=== PATIENT | female | born 1985 | race African-American/Black ===

== ENCOUNTER → 2018-02-26 | Outpatient (CLI) | payer OTHER ==
[~2018-02-26] MED LIST: GASTROGRAFIN SOLUTION 30ML (Q9963) As Ordered; ISOVUE-370 76% 100ML VIAL (Q9967) As Ordered
== END ==
LOC: M RAD 13:40
DX: R10.9 Unspecified abdominal pain (principal)
CPT/HCPCS: Q9963

== ENCOUNTER 2019-01-28 10:27 | Day surgery (SDC) | payer OTHER ==
[~2019-01-28] VITALS: Ht 162.6 cm; Wt 96.4 kg
[2019-01-28] MEDS ORDERED: PREN29TA4 PO (10:41)
[2019-01-28] MEDS ORDERED: LEVO25TA5 PO (10:41)
[2019-01-28] MEDS ORDERED: OMEP-218 PO (10:41)
[2019-01-28 11:35] LABS: HEMATOCRIT 36.5 % (36.0-47.0); HEMOGLOBIN 11.7 g/dl (12.0-15.5); MEAN CORPUSCULAR HEMOGLOBIN 27.7 pg (27.0-33.0); MEAN CORPUSCULAR HGB CONC 32.1 g/dl (32.0-36.5); MEAN CORPUSCULAR VOLUME 86.5 fl (80.0-96.0); PLATELET COUNT, AUTOMATED 373 10^3/uL (150-450); RED BLOOD COUNT 4.22 10^6/uL (4.00-5.40); WHITE BLOOD COUNT 4.5 10^3/uL (4.0-10.0)
--- NOTE | 2019-01-28 13:08 | REP ---
First trimester obstetric sonography: History: Pelvic pain. Vaginal bleeding. No beta hCG level available. 5 weeks 6 days by LMP. Findings: Transabdominal and transvaginal scanning are performed. Uterine dimensions are normal at 7.0 x 4.0 x 4.3 cm. Endometrial echo is 1.0 cm thick and heterogeneous. The patient is actively bleeding. The uterus is retroverted. The right ovary is normal in size with dimensions of 2.3 x 1.2 x 2.6 cm. It contains a 1.4 cm hypoechoic follicle. The left ovary measures 2.6 x 1.6 x 2.2 cm. There is complex free fluid in the cul-de-sac, moderate in degree. There is a hyperechoic complex mass medial to the left ovary in the left adnexa measuring 2.8 x 1.9 x 1.9 cm. There is hyperemic flow associated with this. Findings are suspicious for left adnexal ectopic. Doppler flow was observed in both ovaries. Impression: Moderate amount of complex cul-de-sac fluid and a 2.8 cm complex mass medial to the left ovary raise suspicion of left adnexal ectopic gestation. There is no evidence of intrauterine gestation. Normal right ovary. Electronically Signed by Pilo Ta MD 01/28/2019 06:17 P
[2019-01-28 13:36] LABS: CHLAMYDIA DNA AMPLIFICATION NEGATIVE (NEGATIVE); GC DNA AMPLIFICATION NEGATIVE (NEGATIVE)
[2019-01-28] MEDS ORDERED: BUPIVACAINE HCL 0.25% 30 ML VIAL As Ordered ONE (14:58)
[2019-01-28] MEDS ORDERED: KETOROLAC 60 MG/2 ML VIAL (J1885) As Ordered ONE (18:12)
[2019-01-28] MEDS ORDERED: ACETAMINOPHEN 1000MG 100ML IV BTL (OFIRMEV) (J0131 PER 10MG) As Ordered ONE (18:13)
[2019-01-28] MEDS ORDERED: MIDAZOLAM INJ 2 MG/2 ML VIAL (J2250) As Ordered ONE (18:13)
[2019-01-28] MEDS ORDERED: fentaNYL 250 MCG/5 ML INJECTION (J3010) As Ordered ONE (18:13)
[2019-01-28] MEDS ORDERED: PROPOFOL 200 MG/20 ML VIAL As Ordered ONE (18:13)
[2019-01-28] MEDS ORDERED: ONDANSETRON 4MG/2ML VIAL (J2405) As Ordered ONE (18:13)
[2019-01-28] MEDS ORDERED: ROCURONIUM BROMIDE 50 MG/5 ML VIAL As Ordered ONE (18:13)
[2019-01-28] MEDS ORDERED: LIDOCAINE 2% INJ 100 MG/5 ML SDV (FOR ANES.) As Ordered ONE (18:13)
[2019-01-28] MEDS ORDERED: KETAMINE HCL 200 MG/20 ML VIAL As Ordered ONE (18:17)
[2019-01-28] MEDS ORDERED: SUGAMMADEX SODIUM 500 MG/5 ML VIAL (BRIDION) As Ordered ONE (18:22)
[2019-01-28] MEDS ORDERED: LR 1,000 ML IV SCH (19:15)
[2019-01-28] MEDS ORDERED: ONDANSETRON 4MG/2ML VIAL (J2405) IV PRN (19:15)
[2019-01-28] MEDS ORDERED: PERCOCET 5MG/325MG TAB PO PRN (19:15)
[2019-01-28] MEDS ORDERED: fentaNYL 100 MCG/2 ML INJECTION (J3010) IV PRN (19:15)
[2019-01-28] MEDS: PERCOCET 5MG/325MG TAB PO PRN ×2 (19:23→20:02)
[2019-01-28] MEDS ORDERED: METOCLOPRAMIDE INJ 10MG/2ML VIAL (J2765) As Ordered ONE (19:45)
[2019-01-28] MEDS ORDERED: METOCLOPRAMIDE INJ 10MG/2ML VIAL (J2765) IV PRN (20:00)
[2019-01-28 22:25] VITALS: BP 103/62
--- NOTE | 2019-01-29 08:30 | RO ---
DATE OF PROCEDURE: 01/28/2019 INDICATIONS FOR THE PROCEDURE: The patient presented as a 33-year-old 1, para 0 at approximately 5 plus 2 weeks gestation by last menstrual period (LMP) to the emergency room for left lower quadrant pain and vaginal bleeding. As part of her workup, she was found to be and she had a pelvic ultrasound performed. The pelvic ultrasound revealed complex free fluid in the pelvis and an approximately 3 cm left adnexal mass highly suspicious for an ectopic . The patient was stable but was recommended for diagnostic and possible operative laparoscopy for removal of the ectopic and possible salpingectomy. The patient elected to proceed. PREOPERATIVE DIAGNOSIS: Left adnexal ectopic . POSTOPERATIVE DIAGNOSIS: Left adnexal ectopic . PROCEDURE PERFORMED: Laparoscopic left salpingectomy. SURGEON: Zachary Anaya DO TOOL AND DIE MACHINIST: Nakul Foster MD ANESTHESIA: GETA IV FLUIDS: 1 liter Lactated Ringer's. URINE OUTPUT: 600 mL of urine via Penaloza catheter. ESTIMATED BLOOD LOSS: 3 mL. ANTIBIOTICS: None indicated. OPERATIVE FINDINGS: Normal uterus, normal right fallopian tube, normal right ovary, normal left ovary, left fallopian tube significantly swollen and dilated consistent with ectopic within. COMPLICATIONS: None. DETAILED PROCEDURE DESCRIPTION: The risks, benefits, indications and alternatives to the procedure were reviewed with the patient and informed consent was obtained. The patient was taken to the operating room where general anesthesia was obtained without difficulty. The patient was then placed in lithotomy position using gel padded Papito stirrups. The patient was then prepped and draped in the usual sterile fashion. A surgical time out was then performed and the patient's identity and planned procedure were verified with the operative team. A Penaloza catheter was then placed first to drain the bladder. A sterile speculum was then inserted into the vagina and the cervix was visualized. A Hulka uterine manipulator was then applied to the cervix for manipulation. The sterile speculum was then removed. Gloves were exchanged and attention was then turned to the patient's abdomen where a 5 mm skin incision was made in the inferior aspect of the umbilicus after injection of 0.25% Marcaine. A 5 mm trocar and sleeve were then carefully introduced into the peritoneal cavity under direct visualization at a 90 degree angle while tenting up the abdominal wall. Intraperitoneal placement was confirmed under direct visualization and entry pressure was noted to be less than 5 mmHg. A pneumoperitoneum was then obtained with several liters of CO2 gas. Upon entry into the peritoneal cavity, structures immediately below the incision were inspected and found to be free of injury. At this time, two additional trocars were then inserted into the abdomen to include a 5 mm one in the right lower quadrant and an 11 mm one in the left lower quadrant under direct visualization after skin incisions with a scalpel. A survey of the patient's abdomen and pelvis was notable for a large edematous dilated left fallopian tube consistent with an ectopic within. The fallopian tube had not yet ruptured, however it was bleeding from the distal portion. The left ovary was normal in appearance. The uterus was normal in appearance. The right fallopian tube was normal in appearance. The right ovary was normal in appearance. A survey of the remainder of the patient's abdomen including the liver appeared normal. There was a moderate amount of complex free fluid in the posterior cul-de-sac. Using the atraumatic grasper, the left fallopian tube was inspected and found to not to be salvageable as the ectopic was across the entire length and the tube was significantly swollen. The fallopian tube was then grasped and then in a stepwise fashion the left fallopian tube was transected off the mesosalpinx using the LigaSure electrocautery. Close attention was paid to the left infundibulopelvic ligament and the uterosacral ligament, and neither of these were affected. An Endo Catch bag was then introduced into the abdomen through the 11 mm port site. The left fallopian tube with ectopic within was then placed within the bag and the bag was removed from the abdomen without difficulty. The entire specimen, including the fallopian tube was sent to the pathology for review. Reexamination of the pelvis revealed excellent hemostasis of the operative sites. Suction irrigation was then performed of the pelvis to good effect. The pelvis was then irrigated to good effect. After irrigation and removal of complex free fluid and blood, the pelvis was then again inspected and found to be hemostatic. The operative sites along the left adnexa was noted to be hemostatic. The 11 mm port was then removed under direct visualization and the fascia was close with #0 Vicryl suture using a Nando-Elgin device. The gas was then turned off and all CO2 was removed from the patient's abdomen. All remaining ports were then removed under direct visualization and there was no bleeding seen from the trocar sites. Skin incisions were then reapproximated using #4-0 Monocryl suture in a subcuticular fashion and covered with DERMABOND. The uterine manipulator was then removed from below and the cervix was hemostatic. All instruments were then confirmed to have been removed from the patient's vagina. The patient's Penaloza catheter was then removed. A vaginal sweep was then performed and confirmed no retained foreign object remained. At the completion of the case, the sponge, instrument and needle counts were correct times two. The patient tolerated the procedure well and was taken to the postanesthesia care unit (PACU) in stable condition. KENDALL
== END 2019-01-28 22:34 | disposition home or self-care (01) ==
LOC: M ED 10:27 → M SDC 13:53
PROVIDERS: ATTEND Obstetrics & Gynecology
DX: O00.90 Unspecified ectopic pregnancy without intrauterine pregnancy (principal); E03.9 Hypothyroidism, unspecified; Z79.899 Other long term (current) drug therapy; Z98.84 Bariatric surgery status
CPT/HCPCS: 36415; 59151; 76801; 76817; 81001; 84702; 85027; 86850; 86900; 86901; 87210; 87491; 87591; 88305; 93976; 99284; J0131; J1885; J2250; J2405; J2765; J3010

== ENCOUNTER → 2019-04-27 | Outpatient (CLI) | payer OTHER ==
[~2019-04-27] MED LIST changes: -GASTROGRAFIN SOLUTION 30ML (Q9963) As Ordered; -ISOVUE-370 76% 100ML VIAL (Q9967) As Ordered; +LEVO25TA5 PO; +OMEP-218 PO; +PREN29TA4 PO
--- NOTE | 2019-04-27 14:47 | REP ---
FIRST TRIMESTER ULTRASOUND: Real-time sonographic evaluation of the gravid uterus performed utilizing transabdominal and endovaginal technique. The uterus measures 7.5 x 4.2 x 6.6 cm. The uterus is retroverted. There is an oval gestational sac in the endometrial canal with a mean sac diameter of 21 mm corresponding to an estimated gestational age of 7 weeks 1 day. A yolk sac is seen within the gestational sac. However, no friable pole is seen. Ill-defined echoes within the posterior aspect of the sac measure 1.3 x 0.3 x 1.3 cm. Left subchorionic hemorrhage measures 3.9 x 0.8 x 1.9 cm. Right ovary measures 3.9 x 1.8 x 3.0 cm. There is a complex cystic structure in the right ovary 2.4 x 1.3 x 1.6 cm. Left ovary measures 2.1 x 1.3 x 2.4 cm. There is no evidence of ovarian torsion, RI right ovary 0.71 and left ovary 0.76. IMPRESSION: Gestational sac in the endometrial canal contains a yolk sac and ill-defined echoes with no viable pole. Estimated gestational age based on the mean sac diameter 7 weeks 1 day. A viable pole should be seen with a gestational sac of this size. The findings, therefore, I suspect represent a blighted ovum. There appears to be a left-sided subchorionic hemorrhage 3.9 x 0.8 x 1.9 cm. Electronically Signed by Alex Zuleta MD 04/28/2019 01:56 P
== END ==
LOC: M RAD 08:39
PROVIDERS: ATTEND Obstetrics & Gynecology
DX: Z34.81 Encounter for supervision of other normal pregnancy, first trimester (principal)

== ENCOUNTER 2019-05-01 15:41 | Day surgery (SDC) | payer OTHER ==
[~2019-05-01] VITALS: Ht 162.6 cm; Wt 100.2 kg
[2019-05-01] MEDS ORDERED: ACETAMINOPHEN 650 MG SUPP PR ONE (16:00)
[2019-05-01] MEDS ORDERED: CLINDAMYCIN 900 MG in APPROPRIATE DILUENT 1 EA IV ONE (16:00)
[2019-05-01] MEDS ORDERED: SODIUM CHLORIDE 0.9% 1000ML IV ONE (16:00)
[2019-05-01 16:12] LABS: HEMATOCRIT 37.4 % (36.0-47.0); HEMOGLOBIN 12.2 g/dl (12.0-15.5); MEAN CORPUSCULAR HEMOGLOBIN 28.9 pg (27.0-33.0); MEAN CORPUSCULAR HGB CONC 32.6 g/dl (32.0-36.5); MEAN CORPUSCULAR VOLUME 88.6 fl (80.0-96.0); PLATELET COUNT, AUTOMATED 367 10^3/uL (150-450); RED BLOOD COUNT 4.22 10^6/uL (4.00-5.40); WHITE BLOOD COUNT 7.1 10^3/uL (4.0-10.0)
[2019-05-01] MEDS ORDERED: GENTAMICIN 80 MG in APPROPRIATE DILUENT 1 EA IV ONE (17:00)
[2019-05-01] MEDS ORDERED: NS 1,000 ML IV SCH (17:00)
[2019-05-01] MEDS ORDERED: LR 1,000 ML IV SCH ×2 (17:45→20:00)
[2019-05-01] MEDS ORDERED: LIDOCAINE 2% INJ 100 MG/5 ML SDV (FOR ANES.) As Ordered ONE (17:59)
[2019-05-01] MEDS ORDERED: MIDAZOLAM INJ 2 MG/2 ML VIAL (J2250) As Ordered ONE (17:59)
[2019-05-01] MEDS ORDERED: ONDANSETRON 4MG/2ML VIAL (J2405) As Ordered ONE ×2 (17:59→19:22)
[2019-05-01] MEDS ORDERED: dexameTHASONE 4 MG/ML 1ML VIAL (J1100) As Ordered ONE (17:59)
[2019-05-01] MEDS ORDERED: PROPOFOL 200 MG/20 ML VIAL As Ordered ONE (17:59)
[2019-05-01] MEDS ORDERED: fentaNYL 100 MCG/2 ML INJECTION (J3010) As Ordered ONE (18:01)
[2019-05-01] MEDS ORDERED: ACETAMINOPHEN 650 MG SUPP As Ordered ONE (19:02)
[2019-05-01] MEDS ORDERED: OXYTOCIN INJ 10 UNITS/ML VIAL (J2590) As Ordered ONE (19:10)
[2019-05-01] MEDS ORDERED: fentaNYL 100 MCG/2 ML INJECTION (J3010) IV PRN (20:00)
[2019-05-01] MEDS ORDERED: ONDANSETRON 4MG/2ML VIAL (J2405) IV PRN (20:00)
[2019-05-01] MEDS ORDERED: METOCLOPRAMIDE INJ 10MG/2ML VIAL (J2765) IV PRN (20:00)
[2019-05-01] MEDS ORDERED: PERCOCET 5MG/325MG TAB PO PRN (20:00)
[2019-05-01] MEDS ORDERED: KETOROLAC 30 MG/ML VIAL (J1885) IV PRN (20:00)
[2019-05-01 21:10] VITALS: BP 118/67
--- NOTE | 2019-05-04 21:44 | RO ---
DATE OF PROCEDURE: 05/01/2019 PREOPERATIVE DIAGNOSIS: Missed questionable sepsis. POSTOPERATIVE DIAGNOSIS: Missed questionable sepsis. OPERATION PROPOSED: Suction curettage. OPERATION PERFORMED: Suction curettage. ANESTHESIA: General ESTIMATED BLOOD LOSS: 20 mL SURGEON: Dr. Foster After adequate time-out appropriate antibiotic therapy, sequentials, acetaminophen suppository 1300 mg per rectum. Weighted speculum in vagina and single-tooth tenaculum on the anterior lip of cervix which has a large prominent anterior lip. Uterus sounded to 12 cm dilated to Maxine 10, curved suction curette applied. Curettage a cavity smooth. Uterus replaced in anatomical position well contracted under Pitocin. The patient is Rh positive does not require RhoGAM was sent to recovery in good condition.
== END 2019-05-01 21:35 | disposition home or self-care (01) ==
LOC: M SDC 15:41
PROVIDERS: ATTEND Obstetrics & Gynecology
DX: O02.1 Missed abortion (principal); D64.9 Anemia, unspecified; E03.9 Hypothyroidism, unspecified; Z98.84 Bariatric surgery status; K21.9 Gastro-esophageal reflux disease without esophagitis; Z79.899 Other long term (current) drug therapy
CPT/HCPCS: 36415; 59820; 76817; 84702; 85027; 86850; 86900; 86901; 88305; J1100; J1580; J2250; J2405; J2590; J3010

== ENCOUNTER → 2019-05-01 | Outpatient (CLI) | payer OTHER ==
--- NOTE | 2019-05-01 15:13 | REP ---
TRANSVAGINAL PELVIC ULTRASOUND: Real-time sonographic evaluation of the pelvis performed utilizing transvaginal probe. Comparison made with prior study of 04/27/2019. The uterus is retroverted. It measures 8. 2 x 4.4 x 6.0 cm. The endometrium is heterogenous and thickened, with a maximum AP diameter of 13 mm. There is blood flow in portions of the endometrium with Doppler evaluation. There is mild complex fluid in the endometrial canal. I cannot exclude mild retained products of conception. However, the previously noted gestational sac is no longer visualized in the endometrial canal. Right ovary measures 3.3 x 1.4 x 2.2 cm and left ovary 2.5 x 1.6 x 2.6 cm. There is no torsion bilaterally. Complex corpus luteum in the right ovary measures 2.2 x 1.8 x 1.4 cm. There is mild free fluid in the right adnexa. Electronically Signed by Alex Zuleta MD 05/01/2019 03:22 P
== END ==
LOC: M RAD 13:51
PROVIDERS: ATTEND Obstetrics & Gynecology
DX: O02.1 Missed abortion (principal); R50.9 Fever, unspecified; Z87.59 Personal history of other complications of pregnancy, childbirth and the puerperium; Z79.890 Hormone replacement therapy

== ENCOUNTER 2021-06-21 11:31 | Emergency (ER) | payer OTHER ==
[~2021-06-21] VITALS: Ht 162.6 cm; Wt 125.0 kg
--- OUTSIDE RECORDS SUMMARY | 2021-06-21 11:37 | CCD ---
Author Author [facility] Organization [facility] Address Unknown Phone Unavailable Support Name Relationship Address Phone CARMELLA MATSON Next Of Kin Unknown AAFES Next Of Kin [address] [place] [address] UE Next Of Kin Unknown Unavailable GAUDENCIO SCOTT Next Of Kin [address] [place], [place] [id number] Chente MATSON Next Of Kin [address] [place], [place] [id number] Re-disclosure Warning The records that you are about to access may contain information from federally-assisted alcohol or drug abuse programs. If such information is present, then the following federally mandated warning applies: This information has been disclosed to you from records protected by federal confidentiality rules (42 CFR part 2). The federal rules prohibit you from making any further disclosure of this information unless further disclosure is expressly permitted by the written consent of the person to whom it pertains or as otherwise permitted by 42 CFR part 2. A general authorization for the release of medical or other information is NOT sufficient for this purpose. The Federal rules restrict any use of the information to criminally investigate or prosecute any alcohol or drug abuse patient.The records that you are about to access may contain highly sensitive health information, the redisclosure of which is protected by Article 27-F of the [facility] Public Health law. If you continue you may have access to information: Regarding HIV / AIDS; Provided by facilities licensed or operated by the [facility] Office of Mental Health; or Provided by the [facility] Office for People With Developmental Disabilities. If such information is present, then the following [facility] mandated warning applies: This information has been disclosed to you from confidential records which are protected by state law. State law prohibits you from making any further disclosure of this information without the specific written consent of the person to whom it pertains, or as otherwise permitted by law. Any unauthorized further disclosure in violation of state law may result in a fine or correction sentence or both. A general authorization for the release of medical or other information is NOT sufficient authorization for further disc losure. Medications Medication Brand Name Start Date Product Form Dose Route Admi nistrative Instructions Pharmacy Instructions Status Indications Reaction Description Data Source(s) Ranitidine 150 MG Oral Tablet ranitidine (ZANTAC) 150 MG tablet ranitidine (ZANTAC) 150 MG tablet 05/19/2019 12:00:00 AM EDT 150 mg Oral active Take 1 tablet by mouth Two Times Daily [facility] Insurance Providers Payer name Policy type / Coverage type Policy ID Covered libertarian ID Covered libertarian's relationship to rios Policy Rios Plan Information [facility] [id number] [facility] [id number] [facility] [id number] [facility] [id number] [address] [facility] [id number] [facility] [id number] [facility] [id number] [facility] [id number] [facility] O [id number] O [id number] [facility] [id number] 01 [id number] [facility] [id number] [facility] [id number] Problems, Conditions, and Diagnoses No Information Surgeries/Procedures No Information Results No Information Social History No Information Patient Treatment Plan of Care Planned Activity Planned Date Details Description Data Source (s) Ranitidine 150 MG Oral Tablet 05/19/2019 12:00:00 AM [facility]
[2021-06-21] MEDS ORDERED: IRON325T9 PO (11:38)
[2021-06-21] MEDS ORDERED: LEVO75TA4 PO (12:55)
--- OUTSIDE RECORDS SUMMARY | 2021-06-21 13:50 | CCD ---
Author Author [facility] Organization [facility] Address Unknown Phone Unavailable Support Name Relationship Address Phone CARMELLA MATSON Next Of Kin Unknown AAFES Next Of Kin [address] [place] [address] UE Next Of Kin Unknown Unavailable GAUDENCIO SCOTT Next Of Kin [address] [place], [place] [phone] Chente MATSON Next Of Kin [address] [place], [place] [id number] Re-disclosure Warning The records that you are [...] is protected by Article 27-F of the [facility] Public Health law. If you continue you may have access to information: Regarding HIV / AIDS; Provided by facilities licensed or operated by the [facility] Office of Mental Health; or Provided by the [facility] Office for People With Developmental Disabilities. If such information is present, then the following [facility] mandated warning applies: This information has [...] law may result in a fine or residential sentence or both. A general authorization for [...] 1 tablet by mouth Two Times Daily [facility] Insurance Providers Payer name Policy type / Coverage type Policy ID Covered libertarian ID Covered libertarian's relationship to rios Policy Rios Plan Information [facility] [id number] [facility] [id number] [facility] [id number] [facility] [id number] [address] [facility] [id number] [facility] [id number] [facility] [id number] [facility] [id number] [facility] O [id number] O [id number] [facility] O/P [id number] 01 [id number] [facility] [id number] [facility] [id number] Problems, Conditions, and Diagnoses No Information Surgeries/Procedures No Information Results No Information Social History No Information Patient Treatment Plan of Care Planned Activity Planned Date Details Description Data Source (s) Ranitidine 150 MG Oral Tablet 05/19/2019 12:00:00 AM [facility]
[2021-06-21] MEDS ORDERED: KETOROLAC 60MG 2ML VIAL IM ONE (14:55)
--- NOTE | 2021-06-21 15:46 | REP ---
INDICATION: L arm pain x 2 months COMPARISON: None. TECHNIQUE: Real time compression and duplex Doppler evaluation of the Left upper extremity deep venous system is performed. FINDINGS: The Left subclavian, jugular, axillary, brachial, basilic and cephalic veins are fully compressible where accessible with transducer pressure, and demonstrate no intraluminal thrombus and normal venous waveforms. There is no evidence of deep venous thrombosis.The Right subclavian vein is fully compressible where accessible with transducer pressure, and demonstrates no intraluminal thrombus and normal venous waveforms. IMPRESSION: No evidence of deep venous thrombosis of the Left upper extremity deep vein system. <Electronically signed by Alex Zuleta > 06/21/21 0749
[2021-06-21] MEDS ORDERED: CAPS0.022 TOP (16:02)
[2021-06-21] MEDS ORDERED: NAPR-837 PO (16:02)
[2021-06-21 16:16] VITALS: BP 128/77
== END 2021-06-21 16:18 | disposition home or self-care (01) ==
LOC: M ED 11:31
DX: M79.602 Pain in left arm (principal); Z98.84 Bariatric surgery status
CPT/HCPCS: 93971; 96372; 99283; J1885

== ENCOUNTER → 2021-09-25 | Outpatient (REF) ==
[~2021-09-25] MED LIST changes: +CAPS0.022 TOP; +IRON325T9 PO; +LEVO75TA4 PO; +NAPR-837 PO; +OMEP-173 PO; -OMEP-218 PO
== END ==
LOC: M LAB 10:47
PROVIDERS: ATTEND Nurse Practitioner Adult Health
DX: Z02.89 Encounter for other administrative examinations (principal)

== ENCOUNTER → 2021-11-08 | Outpatient (CLI) | payer OTHER | LOC: M WHC 12:37 | PROVIDERS: ATTEND Plastic Surgery Surgery of the Hand | DX: N62 Hypertrophy of breast (principal); N64.52 Nipple discharge | CPT/HCPCS: 76642; 77066; G0279 ==

== ENCOUNTER → 2022-10-31 | Outpatient (CLI) | payer OTHER ==
[~2022-10-31] MED LIST changes: +ISOVUE-370 76% 100ML VIAL As Ordered ONE
== END ==
LOC: M RADPRO 11:22
PROVIDERS: ATTEND Obstetrics & Gynecology
DX: N97.9 Female infertility, unspecified (principal)
CPT/HCPCS: 58340; 74740; Q9967

== ENCOUNTER → 2023-09-11 | Outpatient (CLI) | payer OTHER ==
[~2023-09-11] MED LIST changes: +E-Z-GAS II EFFERVESCENT PACKET (SODIUM BICARB./CITRIC ACID/SIMETHICONE) As Ordered ONE; +E-Z-HD 98% w/w 340GM SUSP BTL As Ordered ONE; +E-Z-PAQUE 96% w/w SUSP 176GM BTL As Ordered ONE; -ISOVUE-370 76% 100ML VIAL As Ordered ONE
== END ==
LOC: M RAD 08:13
PROVIDERS: ATTEND Surgery
DX: K21.9 Gastro-esophageal reflux disease without esophagitis (principal); Z98.84 Bariatric surgery status

== ENCOUNTER 2023-09-16 04:35 | Emergency (ER) | payer OTHER ==
[~2023-09-16] VITALS: Ht 165.1 cm; Wt 118.2 kg
[~2023-09-16 04:35] MED LIST changes: -E-Z-GAS II EFFERVESCENT PACKET (SODIUM BICARB./CITRIC ACID/SIMETHICONE) As Ordered ONE; -E-Z-HD 98% w/w 340GM SUSP BTL As Ordered ONE; -E-Z-PAQUE 96% w/w SUSP 176GM BTL As Ordered ONE
[2023-09-16] MEDS ORDERED: IBUP80TA PO (04:42)
[2023-09-16] MEDS ORDERED: LIDO1PAD (04:42)
[2023-09-16] MEDS ORDERED: MORPHINE 4 MG/ML 1ML VIAL IV ONE (06:55)
[2023-09-16] MEDS ORDERED: ONDANSETRON 4MG 2ML VIAL IV ONE (06:55)
[2023-09-16] MEDS ORDERED: NS 1,000 ML IV ONE (06:55)
[2023-09-16 07:04] LABS: BASO % 0.3 % (0.0-1.0); EOS % 0.3 % (0.0-3.0); HEMATOCRIT 33.1 % (36.0-47.0); HEMOGLOBIN 10.2 g/dl (12.0-15.5); LYMPH # 1.2 10^3/uL (1.5-5.0); LYMPH % 15.8 % (24.0-44.0); MEAN CORPUSCULAR HEMOGLOBIN 24.8 pg (27.0-33.0); MEAN CORPUSCULAR HGB CONC 30.8 g/dl (32.0-36.5); MEAN CORPUSCULAR VOLUME 80.5 fl (80.0-96.0); MONO # 0.3 10^3/uL (0.0-0.8); MONO % 3.4 % (2.0-8.0); NEUTROPHILS # 5.8 10^3/uL (1.5-8.5); PLATELET COUNT, AUTOMATED 415 10^3/uL (150-450); RED BLOOD COUNT 4.11 10^6/uL (4.00-5.40); WHITE BLOOD COUNT 7.3 10^3/uL (4.0-10.0)
[2023-09-16 07:11] VITALS: TEMP 97.3
[2023-09-16 07:11] LABS: URINE PREG TEST NEGATIVE (NEGATIVE)
[2023-09-16] MEDS ORDERED: MAALOX 30 ML SUSP *UDC PO ONE (07:20)
[2023-09-16] MEDS ORDERED: PANTOPRAZOLE 40MG VIAL IV ONE (07:20)
[2023-09-16] MEDS ORDERED: HYOSCYAMINE SULFATE 0.125 MG SUBL TABLET PO ONE (07:20)
[2023-09-16 07:25] LABS: HCG, SERUM QUALITATIVE NEGATIVE (NEGATIVE)
[2023-09-16 07:30] LABS: LIPASE 23 U/L (12-53)
[2023-09-16 07:33] LABS: ALBUMIN 3.3 G/DL (3.2-5.2); ALKALINE PHOSPHATASE 80 U/L (46-116); ALT/SGPT < 9 U/L (7.0-40); AST/SGOT 12 U/L (<34); BILIRUBIN,DIRECT < 0.1 MG/DL (<0.4); BILIRUBIN,TOTAL 0.3 MG/DL (0.3-1.2); BLOOD UREA NITROGEN 16 MG/DL (9-23); CALCIUM LEVEL 8.8 MG/DL (8.5-10.1); CARBON DIOXIDE LEVEL 24 MMOL/L (20-31); CHLORIDE LEVEL 106 MMOL/L (98-107); CREATININE FOR GFR 0.73 MG/DL (0.55-1.30); GLOMERULAR FILTRATION RATE > 60.0 (>58); GLUCOSE, FASTING 128 MG/DL (60-100); POTASSIUM SERUM 4.1 MMOL/L (3.5-5.1); SODIUM LEVEL 138 MMOL/L (136-145); TOTAL PROTEIN 7.1 G/DL (5.7-8.2)
[2023-09-16 08:04] LABS: CK-MB VALUE MASS < 1.0 NG/ML (<3.6)
[2023-09-16 08:06] LABS: CPK CREATINE PHOSPHOKINASE 100 U/L (34-145)
[2023-09-16] MEDS ORDERED: ISOVUE-370 76% 100ML VIAL As Ordered ONE (08:26)
[2023-09-16] MEDS ORDERED: OMEP40CA4 PO (09:02)
[2023-09-16 09:05] VITALS: BP 117/60; O2SAT 100
== END 2023-09-16 09:10 | disposition home or self-care (01) ==
LOC: M ED 04:35
DX: K21.9 Gastro-esophageal reflux disease without esophagitis (principal); E28.2 Polycystic ovarian syndrome; Z98.84 Bariatric surgery status; Z79.1 Long term (current) use of non-steroidal anti-inflammatories (NSAID); Z79.83 Long term (current) use of bisphosphonates; Z79.899 Other long term (current) drug therapy
CPT/HCPCS: 74018; 74177; 80048; 80076; 81001; 82550; 82553; 83690; 84484; 84703; 85025; 87086; 93005; 93041; 94760; 96361; 96374; 96375; 99285; C9113; J2405; Q9967

== ENCOUNTER → 2023-10-08 | Outpatient (REF) ==
[~2023-10-08] MED LIST changes: +FERR325T14 PO; +IBUP80TA PO; -IRON325T9 PO; +LIDO1PAD; +OMEP40CA4 PO
== END ==
LOC: M EMP 10:21
PROVIDERS: ATTEND Family Medicine
DX: Z11.52 Encounter for screening for COVID-19 (principal)

== ENCOUNTER 2024-01-13 10:23 | Emergency (ER) | payer OTHER ==
[~2024-01-13] VITALS: Ht 165.1 cm; Wt 118.8 kg
[2024-01-13] MEDS ORDERED: LEVO50TA5 PO (10:30)
[2024-01-13] MEDS ORDERED: [UNRECOGNIZED DRUG - CODE] PO (10:30)
[2024-01-13] MEDS ORDERED: IRON65TA2 PO (10:30)
[2024-01-13 11:40] LABS: BASO % 0.2 % (0.0-1.0); HEMATOCRIT 33.1 % (36.0-47.0); HEMOGLOBIN 10.3 g/dl (12.0-15.5); LYMPH # 1.1 10^3/uL (1.5-5.0); LYMPH % 12.8 % (24.0-44.0); MEAN CORPUSCULAR HEMOGLOBIN 24.6 pg (27.0-33.0); MEAN CORPUSCULAR HGB CONC 31.1 g/dl (32.0-36.5); MONO # 0.3 10^3/uL (0.0-0.8); MONO % 3.3 % (2.0-8.0); NEUTROPHILS # 7.1 10^3/uL (1.5-8.5); NEUTROPHILS % 81.8 % (36.0-66.0); PLATELET COUNT, AUTOMATED 440 10^3/uL (150-450); RED BLOOD COUNT 4.19 10^6/uL (4.00-5.40); WHITE BLOOD COUNT 8.6 10^3/uL (4.0-10.0)
[2024-01-13 12:00] LABS: LIPASE 25 U/L (12-53)
[2024-01-13 12:02] LABS: ALBUMIN 3.4 G/DL (3.2-5.2); ALKALINE PHOSPHATASE 95 U/L (46-116); ALT/SGPT 12 U/L (7.0-40); AST/SGOT 15 U/L (<34); BILIRUBIN,DIRECT < 0.1 MG/DL (<0.4); BILIRUBIN,TOTAL 0.3 MG/DL (0.3-1.2); BLOOD UREA NITROGEN 13 MG/DL (9-23); CALCIUM LEVEL 8.9 MG/DL (8.5-10.1); CARBON DIOXIDE LEVEL 27 MMOL/L (20-31); CHLORIDE LEVEL 104 MMOL/L (98-107); CREATININE FOR GFR 0.63 MG/DL (0.55-1.30); GLOMERULAR FILTRATION RATE > 60.0 (>58); GLUCOSE, FASTING 115 MG/DL (60-100); POTASSIUM SERUM 4.4 MMOL/L (3.5-5.1); SODIUM LEVEL 139 MMOL/L (136-145); TOTAL PROTEIN 7.5 G/DL (5.7-8.2)
[2024-01-13] MEDS ORDERED: ISOVUE-370 76% 100ML VIAL As Ordered ONE (12:05)
[2024-01-13] MEDS: ONDANSETRON 4MG 2ML VIAL IV ONE (12:26)
[2024-01-13] MEDS: PANTOPRAZOLE 40MG VIAL IV ONE (12:26)
[2024-01-13 12:45] VITALS: TEMP 97.6; O2SAT 98
[2024-01-13] MEDS: SUCRALFATE 1 GM TAB PO ONE (13:03)
[2024-01-13] MEDS ORDERED: SUCR1SS PO (13:04)
[2024-01-13] MEDS ORDERED: PROT1TAB2 PO (13:04)
[2024-01-13 13:24] VITALS: BP 158/73
== END 2024-01-13 13:28 | disposition home or self-care (01) ==
LOC: M ED 10:23
DX: K27.9 Peptic ulcer, site unspecified, unspecified as acute or chronic, without hemorrhage or perforation (principal); E11.9 Type 2 diabetes mellitus without complications; K57.30 Diverticulosis of large intestine without perforation or abscess without bleeding; Z98.84 Bariatric surgery status; Z79.1 Long term (current) use of non-steroidal anti-inflammatories (NSAID); Z79.810 Long term (current) use of selective estrogen receptor modulators (SERMs); Z79.899 Other long term (current) drug therapy
CPT/HCPCS: 74177; 80048; 80076; 83690; 85025; 96374; 99284; C9113; J2405; Q9967

== ENCOUNTER 2024-01-22 16:29 | Emergency (ER) | payer OTHER ==
[~2024-01-22] VITALS: Ht 165.1 cm; Wt 116.6 kg
[~2024-01-22 16:29] MED LIST changes: +IRON65TA2 PO; +LEVO50TA5 PO; +PROT1TAB2 PO; +SUCR1SS PO; +[UNRECOGNIZED DRUG - CODE] PO
[2024-01-22 17:22] LABS: BASO % 0.4 % (0.0-1.0); EOS # 0.1 10^3/uL (0.0-0.5); EOS % 0.8 % (0.0-3.0); HEMATOCRIT 31.8 % (36.0-47.0); HEMOGLOBIN 9.8 g/dl (12.0-15.5); LYMPH # 1.7 10^3/uL (1.5-5.0); MEAN CORPUSCULAR HEMOGLOBIN 24.4 pg (27.0-33.0); MEAN CORPUSCULAR HGB CONC 30.8 g/dl (32.0-36.5); MEAN CORPUSCULAR VOLUME 79.3 fl (80.0-96.0); MONO # 0.5 10^3/uL (0.0-0.8); MONO % 6.3 % (2.0-8.0); NEUTROPHILS # 5.7 10^3/uL (1.5-8.5); NEUTROPHILS % 71.1 % (36.0-66.0); PLATELET COUNT, AUTOMATED 475 10^3/uL (150-450); RED BLOOD COUNT 4.01 10^6/uL (4.00-5.40); WHITE BLOOD COUNT 7.9 10^3/uL (4.0-10.0)
[2024-01-22 17:45] LABS: LIPASE 25 U/L (12-53)
[2024-01-22 17:47] LABS: ALBUMIN 3.3 G/DL (3.2-5.2); ALKALINE PHOSPHATASE 83 U/L (46-116); ALT/SGPT < 9 U/L (7.0-40); AST/SGOT < 8 U/L (<34); BILIRUBIN,DIRECT < 0.1 MG/DL (<0.4); BILIRUBIN,TOTAL 0.3 MG/DL (0.3-1.2); BLOOD UREA NITROGEN 11 MG/DL (9-23); CALCIUM LEVEL 9.1 MG/DL (8.5-10.1); CARBON DIOXIDE LEVEL 28 MMOL/L (20-31); CHLORIDE LEVEL 106 MMOL/L (98-107); CREATININE FOR GFR 0.71 MG/DL (0.55-1.30); GLOMERULAR FILTRATION RATE > 60.0 (>58); GLUCOSE, FASTING 97 MG/DL (60-100); POTASSIUM SERUM 4.1 MMOL/L (3.5-5.1); SODIUM LEVEL 140 MMOL/L (136-145); TOTAL PROTEIN 7.1 G/DL (5.7-8.2)
[2024-01-22 17:56] LABS: HCG, SERUM QUALITATIVE NEGATIVE (NEGATIVE)
[2024-01-22] MEDS: ONDANSETRON 4MG 2ML VIAL IV ONE (20:57)
[2024-01-22] MEDS: MORPHINE 4 MG/ML 1ML VIAL IV ONE (20:58)
[2024-01-22] MEDS: GASTROGRAFIN SOLUTION 30ML PO SCH (21:00)
[2024-01-22 21:17] LABS: INR 1.12; PARTIAL THROMBOPLASTIN TIME 33.7 SECONDS (24.8-34.2)
[2024-01-22] MEDS: PANTOPRAZOLE 40MG VIAL IV ONE (21:49)
[2024-01-22] MEDS ORDERED: ISOVUE-370 76% 100ML VIAL As Ordered ONE (22:29)
[2024-01-22] MEDS: KETOROLAC 30 MG/ML 1ML VIAL IV ONE (23:41)
[2024-01-22] MEDS: PIPERACILLIN/TAZOBACTAM SOD 3.375 GM in D5W MINI-BAG PLUS 50 ML IV ONE (23:41)
[2024-01-23] MEDS ORDERED: AMOX875T2 PO (00:35)
[2024-01-23 00:41] VITALS: BP 118/67; TEMP 97; O2SAT 98
== END 2024-01-23 00:52 | disposition home or self-care (01) ==
LOC: M ED 16:29
DX: K81.0 Acute cholecystitis (principal); N93.9 Abnormal uterine and vaginal bleeding, unspecified; D64.9 Anemia, unspecified; Z98.84 Bariatric surgery status; Z79.2 Long term (current) use of antibiotics; Z79.810 Long term (current) use of selective estrogen receptor modulators (SERMs); Z79.899 Other long term (current) drug therapy
CPT/HCPCS: 74177; 76830; 76856; 80048; 80076; 83690; 84703; 85025; 85610; 85730; 86850; 86900; 86901; 93976; 96365; 96375; 99284; C9113; J1885; J2405; J2543; Q9963; Q9967

== ENCOUNTER → 2024-04-01 | Outpatient (REF) ==
[~2024-04-01] MED LIST changes: +AMOX875T2 PO
== END ==
LOC: M EMP 10:31
PROVIDERS: ATTEND Family Medicine
DX: Z20.822 Contact with and (suspected) exposure to COVID-19 (principal)

== ENCOUNTER → 2024-04-02 | Outpatient (CLI) | payer OTHER | LOC: M WHC 07:02 | PROVIDERS: ATTEND Family Medicine | DX: Z12.31 Encounter for screening mammogram for malignant neoplasm of breast (principal) ==

== ENCOUNTER 2024-04-29 12:01 | Outpatient (CLI) | payer OTHER ==
[~2024-04-29] VITALS: Ht 167.6 cm; Wt 118.2 kg
[~2024-04-29 12:01] MED LIST changes: +ALBUTEROL SULFATE 2.5MG/0.5ML INH NEB SOLN INH PRN; +EPINEPHrine INJ 1 MG/ML 1ML AMP IM PRN; +NS 1,000 ML IV SCH; +diphenhydrAMINE 50MG/ML VIAL IV PRN; +methylPREDNISolone 125MG 2ML VIAL IV PRN
[2024-04-29 12:05] VITALS: BP 130/89; O2SAT 100
[2024-04-29] MEDS: FERRIC CARBOXYMALTOSE INJ 750 MG in NS 250 ML (>50kg) IV ONE (12:19)
[2024-04-29 14:25] VITALS: BP 116/76; O2SAT 100
== END 2024-04-29 14:30 ==
LOC: M INFU 12:01
PROVIDERS: ATTEND Obstetrics & Gynecology
DX: D64.9 Anemia, unspecified (principal); Z88.6 Allergy status to analgesic agent
CPT/HCPCS: 96365; 96366; J1439

== ENCOUNTER 2024-05-12 11:10 | Outpatient (CLI) | payer OTHER ==
[~2024-05-12] VITALS: Ht 162.6 cm; Wt 116.0 kg
[2024-05-12 11:10] VITALS: BP 130/74; O2SAT 99
[2024-05-12] MEDS: FERRIC CARBOXYMALTOSE INJ 750 MG in NS 250 ML (>50kg) IV ONE (11:20)
[2024-05-12 12:35] VITALS: BP 117/66; O2SAT 97
== END 2024-05-12 13:20 ==
LOC: M INFU 11:10
PROVIDERS: ATTEND Obstetrics & Gynecology
DX: D64.9 Anemia, unspecified (principal); Z88.6 Allergy status to analgesic agent
CPT/HCPCS: 96365; 96366; J1439

== ENCOUNTER 2024-09-09 22:16 | Emergency (ER) | payer OTHER ==
[~2024-09-09] VITALS: Ht 165.1 cm; Wt 106.8 kg
[~2024-09-09 22:16] MED LIST changes: -ALBUTEROL SULFATE 2.5MG/0.5ML INH NEB SOLN INH PRN; -EPINEPHrine INJ 1 MG/ML 1ML AMP IM PRN; -NS 1,000 ML IV SCH; -diphenhydrAMINE 50MG/ML VIAL IV PRN; -methylPREDNISolone 125MG 2ML VIAL IV PRN
[2024-09-09 22:20] VITALS: TEMP 97.7
[2024-09-09] MEDS ORDERED: METH-1164 (22:32)
[2024-09-09] MEDS ORDERED: GABA-1171 (22:32)
[2024-09-09] MEDS ORDERED: MILKSUS10 (22:32)
[2024-09-09] MEDS ORDERED: SENN-187 (22:32)
[2024-09-09] MEDS ORDERED: SYNT75TA (22:32)
[2024-09-09] MEDS ORDERED: actigall PO (22:32)
[2024-09-09] MEDS ORDERED: ACET32TAB PO (22:32)
[2024-09-09] MEDS ORDERED: ONDA-282 (22:32)
[2024-09-09] MEDS ORDERED: TRAM50TA2 (22:32)
[2024-09-09] MEDS ORDERED: SIME80CH6 (22:32)
[2024-09-09] MEDS ORDERED: OMEP40CA5 (22:32)
[2024-09-09 23:18] LABS: BASO % 0.3 % (0.0-1.0); EOS # 0.2 10^3/uL (0.0-0.5); EOS % 2.6 % (0.0-3.0); HEMATOCRIT 40.6 % (36.0-47.0); HEMOGLOBIN 13.1 g/dl (12.0-15.5); LYMPH # 1.5 10^3/uL (1.5-5.0); LYMPH % 22.7 % (24.0-44.0); MEAN CORPUSCULAR HEMOGLOBIN 28.2 pg (27.0-33.0); MEAN CORPUSCULAR HGB CONC 32.3 g/dl (32.0-36.5); MEAN CORPUSCULAR VOLUME 87.5 fl (80.0-96.0); MONO # 0.5 10^3/uL (0.0-0.8); MONO % 6.8 % (2.0-8.0); NEUTROPHILS # 4.5 10^3/uL (1.5-8.5); NEUTROPHILS % 67.4 % (36.0-66.0); PLATELET COUNT, AUTOMATED 408 10^3/uL (150-450); RED BLOOD COUNT 4.64 10^6/uL (4.00-5.40); WHITE BLOOD COUNT 6.6 10^3/uL (4.0-10.0)
[2024-09-09 23:33] LABS: LIPASE 34 U/L (12-53)
[2024-09-09 23:35] LABS: ALBUMIN 3.6 G/DL (3.2-5.2); ALKALINE PHOSPHATASE 81 U/L (35-104); ALT/SGPT 15 U/L (7.0-40); AST/SGOT < 8 U/L (<34); BILIRUBIN,DIRECT < 0.1 MG/DL (<0.4); BILIRUBIN,TOTAL 0.3 MG/DL (0.3-1.2); BLOOD UREA NITROGEN 10 MG/DL (9-23); CALCIUM LEVEL 9.5 MG/DL (8.5-10.1); CARBON DIOXIDE LEVEL 27 MMOL/L (20-31); CHLORIDE LEVEL 104 MMOL/L (98-107); CREATININE FOR GFR 0.78 MG/DL (0.55-1.30); GLOMERULAR FILTRATION RATE > 60.0 (>58); GLUCOSE, FASTING 73 MG/DL (60-100); SODIUM LEVEL 144 MMOL/L (136-145); TOTAL PROTEIN 7.7 G/DL (5.7-8.2)
[2024-09-09 23:37] LABS: HCG, SERUM QUALITATIVE NEGATIVE (NEGATIVE)
[2024-09-10] MEDS: ONDANSETRON 4MG 2ML VIAL IV ONE (03:59)
[2024-09-10] MEDS: NS 500 ML IV ONE (03:59)
[2024-09-10] MEDS: GASTROGRAFIN SOLUTION 30ML PO SCH (04:41)
[2024-09-10] MEDS ORDERED: ISOVUE-370 76% 100ML VIAL As Ordered ONE (05:53)
[2024-09-10 06:16] VITALS: BP 113/67; O2SAT 99
[2024-09-10] MEDS ORDERED: ONDA-282 PO (06:52)
[2024-09-10] MEDS: LEVOTHYROXINE 75MCG TABLET (0.075MG) PO STA (06:55)
[2024-09-10] MEDS: GABAPENTIN 100 MG CAP PO ONE (06:55)
[2024-09-10] MEDS: PANTOPRAZOLE 40MG TAB (PROTONIX) PO ONE (06:55)
[2024-09-10] MEDS: methocarbamoL 500 MG TAB PO ONE (06:55)
== END 2024-09-10 07:18 | disposition home or self-care (01) ==
LOC: M ED 22:16
DX: R10.9 Unspecified abdominal pain (principal); R11.2 Nausea with vomiting, unspecified; K42.9 Umbilical hernia without obstruction or gangrene; J98.11 Atelectasis; K21.9 Gastro-esophageal reflux disease without esophagitis; E03.9 Hypothyroidism, unspecified; M54.50 Low back pain, unspecified; Z98.84 Bariatric surgery status; Z91.018 Allergy to other foods; Z88.6 Allergy status to analgesic agent; Z79.83 Long term (current) use of bisphosphonates; Z79.1 Long term (current) use of non-steroidal anti-inflammatories (NSAID); Z79.899 Other long term (current) drug therapy
CPT/HCPCS: 74177; 80048; 80076; 83690; 84703; 85025; 87486; 87581; 87633; 87798; 96361; 96374; 99284; J2405; Q9963; Q9967

== ENCOUNTER 2024-09-25 11:20 | Observation (INO) | payer OTHER ==
[~2024-09-25] VITALS: Ht 165.1 cm; Wt 104.4 kg
[~2024-09-25 11:20] MED LIST changes: +ACET32TAB PO; +GABA-1171; +METH-1164; +MILKSUS10 PO; +OMEP40CA5 PO; +ONDA-282; +ONDA-282 PO; +SENN-187 PO; +SIME80CH6 PO; +SYNT75TA PO; +TRAM50TA2; +actigall PO
[2024-09-25] MEDS ORDERED: FUSICAP PO (12:59)
[2024-09-25] MEDS ORDERED: CALC1TAB42 PO (13:00)
[2024-09-25 13:08] LABS: BASO % 0.4 % (0.0-1.0); EOS # 0.1 10^3/uL (0.0-0.5); EOS % 1.5 % (0.0-3.0); HEMATOCRIT 43.7 % (36.0-47.0); HEMOGLOBIN 13.9 g/dl (12.0-15.5); LYMPH % 28.1 % (24.0-44.0); MEAN CORPUSCULAR HEMOGLOBIN 28.7 pg (27.0-33.0); MEAN CORPUSCULAR HGB CONC 31.8 g/dl (32.0-36.5); MEAN CORPUSCULAR VOLUME 90.1 fl (80.0-96.0); MONO # 0.5 10^3/uL (0.0-0.8); NEUTROPHILS # 4.5 10^3/uL (1.5-8.5); NEUTROPHILS % 62.9 % (36.0-66.0); PLATELET COUNT, AUTOMATED 376 10^3/uL (150-450); RED BLOOD COUNT 4.85 10^6/uL (4.00-5.40); WHITE BLOOD COUNT 7.2 10^3/uL (4.0-10.0)
[2024-09-25 13:35] LABS: LIPASE 36 U/L (12-53)
[2024-09-25 13:38] LABS: ALBUMIN 4.1 G/DL (3.2-5.2); ALKALINE PHOSPHATASE 87 U/L (35-104); ALT/SGPT 11 U/L (7.0-40); AST/SGOT 8 U/L (<34); BILIRUBIN,DIRECT 0.1 MG/DL (<0.4); BILIRUBIN,TOTAL 0.4 MG/DL (0.3-1.2); BLOOD UREA NITROGEN 16 MG/DL (9-23); CALCIUM LEVEL 9.6 MG/DL (8.5-10.1); CARBON DIOXIDE LEVEL 27 MMOL/L (20-31); CHLORIDE LEVEL 104 MMOL/L (98-107); CREATININE FOR GFR 0.76 MG/DL (0.55-1.30); GLOMERULAR FILTRATION RATE > 60.0 (>58); GLUCOSE, FASTING 90 MG/DL (60-100); POTASSIUM SERUM 3.8 MMOL/L (3.5-5.1); SODIUM LEVEL 145 MMOL/L (136-145); TOTAL PROTEIN 8.4 G/DL (5.7-8.2)
[2024-09-25 13:51] LABS: HCG, SERUM QUALITATIVE NEGATIVE (NEGATIVE)
[2024-09-25] MEDS: ONDANSETRON 4MG 2ML VIAL IV ONE (16:25)
[2024-09-25] MEDS: NS (Normal Saline) 0.9% 1,000 ML IV ONE ×2 (16:25→18:04)
[2024-09-25 17:22] LABS: APPEARANCE, URINE HAZY (CLEAR); BACTERIA, URINE AUTO NEGATIVE (NEGATIVE); BILIRUBIN, URINE AUTO 1+ (NEGATIVE); BLOOD, URINE BLOOD NEGATIVE (NEGATIVE); COLOR, URINE AMBER (YELLOW); GLUCOSE, URINE (UA) AUTO NEGATIVE (NEGATIVE); KETONE, URINE AUTO 2+ mg/dL (NEGATIVE); LEUKOCYTE ESTERASE, URINE AUTO NEGATIVE (NEGATIVE); MUCUS, URINE LARGE (NEGATIVE); NITRITE, URINE AUTO NEGATIVE (NEGATIVE); PROTEIN, URINE AUTO 2+ mg/dL (NEGATIVE); RBC, URINE AUTO 1 /HPF (0-3); SPECIFIC GRAVITY URINE AUTO 1.036 (1.002-1.035); SQUAMOUS EPITHELIAL CELL UR AU 7 /HPF (0-6); WBC, URINE AUTO 2 /HPF (0-3)
[2024-09-25] MEDS ORDERED: URSO300C3 PO (19:11)
[2024-09-25] MEDS ORDERED: PANT-23 PO (19:11)
[2024-09-25] MEDS ORDERED: ONDA-83 PO (19:11)
[2024-09-25] MEDS: NS (Normal Saline) 0.9% 1,000 ML IV SCH (19:15)
[2024-09-25] MEDS ORDERED: MOM 30ML SUSPENSION UDC PO PRN (19:15)
[2024-09-25] MEDS ORDERED: HOME MED LIST COMPLETE! XX SCH (19:15)
[2024-09-25] MEDS: PANTOPRAZOLE 40MG VIAL IV SCH (21:01)
[2024-09-26 00:53] VITALS: BP 123/67; TEMP 97.5; O2SAT 100
[2024-09-26] MEDS ORDERED: CEPACOL LOZENGE PO PRN (02:00)
[2024-09-26] MEDS: ACETAMINOPHEN *IV* 1,000 MG in IV 1 EA IV PRN (02:01)
[2024-09-26 05:18] LABS: HEMATOCRIT 34.6 % (36.0-47.0); MEAN CORPUSCULAR HEMOGLOBIN 28.9 pg (27.0-33.0); MEAN CORPUSCULAR HGB CONC 31.8 g/dl (32.0-36.5); MEAN CORPUSCULAR VOLUME 90.8 fl (80.0-96.0); PLATELET COUNT, AUTOMATED 288 10^3/uL (150-450); RED BLOOD COUNT 3.81 10^6/uL (4.00-5.40)
[2024-09-26 05:37] LABS: ALBUMIN 2.8 G/DL (3.2-5.2); ALKALINE PHOSPHATASE 64 U/L (35-104); ALT/SGPT < 9 U/L (7.0-40); AST/SGOT < 8 U/L (<34); BILIRUBIN,TOTAL 0.4 MG/DL (0.3-1.2); BLOOD UREA NITROGEN 13 MG/DL (9-23); CALCIUM LEVEL 7.7 MG/DL (8.5-10.1); CARBON DIOXIDE LEVEL 22 MMOL/L (20-31); CHLORIDE LEVEL 110 MMOL/L (98-107); CREATININE FOR GFR 0.65 MG/DL (0.55-1.30); GLOMERULAR FILTRATION RATE > 60.0 (>58); GLUCOSE, FASTING 71 MG/DL (60-100); POTASSIUM SERUM 3.6 MMOL/L (3.5-5.1); SODIUM LEVEL 145 MMOL/L (136-145); TOTAL PROTEIN 5.8 G/DL (5.7-8.2)
[2024-09-26] MEDS: LEVOTHYROXINE 100MCG (0.1MG) 5ML SDV PF (SOLUTION FORM) IV SCH (06:00)
[2024-09-26 06:08] VITALS: BP 94/56; TEMP 97.4; O2SAT 100
[2024-09-26 07:59] LABS: PROCALCITONIN <0.04 ng/ml
[2024-09-26] MEDS: METOCLOPRAMIDE INJ 10MG/2ML VIAL IV ONE ×2 (08:30→12:00)
[2024-09-26] MEDS: ENOXAPARIN 40MG/0.4ML SYRINGE (J1650 PER 10MG) SC SCH (08:30)
[2024-09-26 12:21] VITALS: BP 100/57; TEMP 97.9; O2SAT 99
[2024-09-26] MEDS ORDERED: REGL5TAB2 PO ×2 (13:40→13:45)
[2024-09-26] MEDS: ONDANSETRON 4MG 2ML VIAL IV PRN (14:18)
== END 2024-09-26 14:41 | disposition home or self-care (01) ==
LOC: M ED 11:20 → M ED INP 21:08 → INTOOBSV 21:08 → M MSPAV 09-26 00:50
PROVIDERS: ADMIT Student in an Organized Health Care Education/Training Program; ATTEND Internal Medicine
DX: R11.2 Nausea with vomiting, unspecified (principal); Z98.84 Bariatric surgery status; E03.9 Hypothyroidism, unspecified; E28.2 Polycystic ovarian syndrome; Z79.899 Other long term (current) drug therapy; Z91.018 Allergy to other foods; Z88.8 Allergy status to other drugs, medicaments and biological substances
CPT/HCPCS: 36415; 74176; 80048; 80053; 80076; 81001; 83690; 84145; 84703; 85025; 85027; 87486; 87581; 87633; 87798; 96361; 96374; 96375; 96376; 99285; J0131; J2405; J2470; J2765

== ENCOUNTER → 2024-09-29 | Outpatient (CLI) | payer OTHER ==
[~2024-09-29] MED LIST changes: +CALC1TAB42 PO; +E-Z-HD 98% w/w 340GM SUSP BTL As Ordered ONE; +E-Z-PAQUE 96% w/w SUSP 176GM BTL As Ordered ONE; +FUSICAP PO; +ONDA-83 PO; +PANT-23 PO; +REGL5TAB2 PO; +URSO300C3 PO
== END ==
LOC: M RAD 10:27
PROVIDERS: ATTEND Physician Assistant
DX: R11.2 Nausea with vomiting, unspecified (principal); Z98.84 Bariatric surgery status; K56.699 Other intestinal obstruction unspecified as to partial versus complete obstruction